=== PATIENT | male | born 1990 | race African-American/Black ===

== ENCOUNTER 2016-11-11 12:15 | Emergency (ER) | payer SELFPAY ==
[2016-12-12] MEDS ORDERED: FERROUS SULF325 M1 PO (15:18)
== END 2016-11-11 15:17 | disposition home or self-care (01) ==
LOC: ER 12:15
DX: T81.4XXA Infection following a procedure, initial encounter (principal)
CPT/HCPCS: 99282

== ENCOUNTER 2016-12-19 06:19 | Day surgery (SDC) | payer SELFPAY ==
[2016-12-14 13:53] LABS: HEMATOCRIT 34.6 % (40.0-51.0); HEMOGLOBIN 10.9 g/dL (13.6-17.8)
--- NOTE | ~2016-12-19 | OP ---
Record Of Operation [facility] [address] [place]. [address] NAME: LALITHA GARLAND : 88 STATUS : [facility]#: [id number] AGE: 26 ADM/REG DATE : 12/19/16 MR#: [id number] REPORT SERV DATE: 12/19/16 DICTATED BY: TOD GALVEZ DATE: 12/19/16 REPORT STATUS : Draft TRANSCRIBED BY: [email or web address] DATE: 12/19/16 DATE OF PROCEDURE: 12/19/2016 PREOPERATIVE DIAGNOSIS: Osteomyelitis left mandible, fistula, left neck, probable pathologic fracture. POSTOPERATIVE DIAGNOSIS: Osteomyelitis left mandible, fistula left neck. OPERATION: Debridement, sequestrectomy, excision of fistula. DESCRIPTION OF PROCEDURE: After induction of general endotracheal anesthesia, face and mouth were prepped and draped in the usual manner. The patient received 2 g of Ancef and 8 mg of Decadron intravenously. Culture specimens were obtained through the fistulous tract for anaerobic and aerobic, and Gram stain specimens. Next, the oral cavity was entered. There was noted to be a fistulous tract at the depths of the lingual vestibule on the left side. A mucoperiosteal flap was reflected from the left mandible on the medial surface as well as the lateral surface. The lateral cortex and inferior border appeared to be intact without evidence of fracture. Two teeth were removed, which were grossly carious and involved with dental abscess. A large segment of bone from the medial surface of the left mandible approximately 2 x 1.5 cm in diameter was removed and the granulomatous material debrided with a curette. The wound was copiously irrigated with chlorhexidine 0.12% as well as normal saline. The mandible appeared to be intact and the occlusion was stable. The external fistula was excised with an elliptical excision and carried down to the mandibular bone. Further curettage was carried out through this wound as well. The skin and subcutaneous tissues were closed with 4-0 Vicryl suture. Attention was then turned to the oral cavity, which was irrigated again with chlorhexidine and the wound was packed with half inch iodoform gauze and brought out through the fistulous tract from the mandible and the mucosa on the superior aspect of mandible was sutured with 3-0 continuous chromic gut suture. The pharynx was suctioned clear and the patient was allowed to awaken on inflated endotracheal tube having tolerated the procedure well. BLOOD LOSS: Approximately 50 mL. IV FLUIDS: 700 mL lactated Ringer's. WT/MODL Tod Galvez D.D.S. / [id number] CC: Tod Galvez D.D.S.
[~2016-12-19 06:19] MED LIST: FERROUS SULF325 M1 PO
== END 2016-12-19 13:33 | disposition home or self-care (01) ==
LOC: SDC 06:19
PROVIDERS: Oral & Maxillofacial Surgery
PROC: 0NBV0ZZ Excision of Left Mandible, Open Approach (ICD-10-PCS; principal; 2016-12-19 07:45)
DX: M86.9 Osteomyelitis, unspecified (principal); D64.9 Anemia, unspecified; M27.8 Other specified diseases of jaws; Z79.899 Other long term (current) drug therapy
CPT/HCPCS: 85014; 85018; 87015; 87070; 87075; 87102; 87116; 88307; 88311; A9270-GY; J0690; J2250; J2370; J2405; J2710; J3010